=== PATIENT | male | born 1985 | race Caucasian/White ===

== ENCOUNTER 2021-06-28 18:05 | Emergency (ER) | payer MEDICAID ==
[~2021-06-28] VITALS: Ht 157.5 cm; Wt 55.0 kg
[2021-06-28] MEDS ORDERED: TETRACAINE 0.5% OPHTH DROPS 4ML BOTHEYE ONE (21:15)
[2021-06-28] MEDS ORDERED: FLUORESCEIN SODIUM 1MG/STRIP BOTHEYE ONE (21:15)
[2021-06-28] MEDS ORDERED: VANCOMYCIN 1G PREMIX 200 ML IV SCH (21:45)
[2021-06-28] MEDS ORDERED: LEVOFLOXACIN 750MG PREMIX 150 ML IV ONE (21:45)
[2021-06-28] MEDS ORDERED: TETANUS AND DIPHTHERIA TOX/PF 0.5ML SYR (ADULT) IM ONE (21:45)
[2021-06-28] MEDS ORDERED: MORPHINE SULFATE 4 MG/ML CPJ (NOT FOR IM USE) IV ONE (21:45)
[2021-06-28] MEDS ORDERED: VANCOMYCIN 1GM PMX (XELLIA) 200 ML IV NR (22:00)
[2021-06-28] MEDS ORDERED: CYCL2DRO LEFTEYE (23:09)
[2021-06-28] MEDS ORDERED: CIPR2.5D13 LEFTEYE (23:09)
[2021-06-29 02:35] VITALS: BP 140/76
== END 2021-06-29 02:38 | disposition home or self-care (01) ==
LOC: EDBD 18:15 → ER 18:15
DX: S05.01XA Injury of conjunctiva and corneal abrasion without foreign body, right eye, initial encounter (principal); X58.XXXA Exposure to other specified factors, initial encounter; Y93.89 Activity, other specified; Y92.89 Other specified places as the place of occurrence of the external cause
CPT/HCPCS: 70480; 90471; 96374; 96375; 99285; J1956; J2270; J3370; 90714